=== PATIENT | female | born 1965 | race Caucasian/White ===

== ENCOUNTER 2017-05-23 18:47 | Observation (INO) | payer OTHER ==
[~2017-05-23] VITALS: Ht 160 cm; Wt 85.3 kg
[2017-05-23] MEDS ORDERED: FAMOTIDINE 20MG/102 ML D5W IV STA (19:37)
[2017-05-23] MEDS ORDERED: GI COCKTAIL PO STA (19:37)
[2017-05-23] MEDS ORDERED: SODIUM CHLORIDE 0.9% 1000ML 1,000 ML IV STA (19:37)
[2017-05-23] MEDS ORDERED: LIDOCAINE HCL 2% VISC SOLN 20 ML UDC ONE (19:49)
[2017-05-23] MEDS ORDERED: ALUMINUM/MAGNESIUM/SIMETH (MAALOX MAX) 30 ML UDC ONE (19:49)
--- NOTE | 2017-05-23 19:49 | EMERGENCY ROOM VISIT NOTE ---
History Report prepared by Lydia: Yobany Junior Under the Supervision of: Dr. Austin Ivan M.D. First contact with patient: 19:34 Chief Complaint: CARDIAC ASSESSMENT Stated Complaint: CHEST PAINS FOR 3 DAYS History of Present Illness The patient is a 52 year old female who presents to the Emergency Room with complaints of waxing and waning chest pain that started 3 days ago. She says that she initially she thought the pain was indigestion, but for the first time the pain was not resolved at all with [place]. The patient states that the pain is worsened with standing up as well as with exertion. The patient says that the pain currently is not too bad while she is laying down. She rates the pain currently as a 3 out of 10 in severity. She says that the pain has not been consistent with indigestion, as it does not change with eating. She notes that she has been nauseous the past few days but cannot vomit since her gastric bypass surgery. The patient says that she has not been eating quite as much due to the nausea, and she has been getting more cold recently, which is unusual for her. She adds that she has been having diarrhea the past couple of days. She states that she is not nauseous currently. The patient has no history of clots in her legs or lungs, and she has no history of cancer. The patient denies any fevers, cough, congestion, urinary symptoms, or leg swelling. She states that her brother had a heart attack at the age of 57. She has had no recent plane trips. She is a non-smoker. Source of History: patient Onset: 3 days ago Position: chest Symptom Intensity: currently a 3/10 Timing: waxes/wanes Modifying Factors (Worsening): exertion, other (standing up) Modifying Factors (Relieving): rest, other (laying down) Associated Symptoms: + nausea, + diarrhea, No fevers, No cough, No vomiting , No urinary symptoms Note: Associated symptoms: More cold recently. Denies congestion or leg swelling. Review of Systems See HPI for pertinent positives and negatives. A total of ten systems were reviewed and were otherwise negative. Past Medical & Surgical Medical Problems: (1) Chest pain (2) HTN (hypertension) (3) Indigestion Surgical Problems: (1) History of gastric bypass Family History Diabetes mellitus Heart disease Hypertension Kidney disease Social History Smoking Status: Never Smoker Smokeless Tobacco Use: No Alcohol Use: none Marital Status: in relationship Housing Status: lives with family Occupation Status: employed Current/Historical Medications Scheduled Amitriptyline HCl (Amitriptyline HCl), 20 MG PO HS Calcium Citrate-Vitamin D (Calcium Citrate + D3 Max 315-250 mg-Unit), 2 TABS PO BID Cyanocobalamin (Cyanocobalamin), 1,000 MCG SQ Q3MO Cyclosporine (Ophth) (Restasis), 1 DROP OP DIRECTED Fluoxetine (Prozac), 60 MG PO DAILY Lansoprazole (Prevacid), 30 MG PO DAILY Lisinopril (Zestril), 20 MG PO DAILY [place] Carbonate ([place] Carbonate), 300 MG PO BID Pediatric Multiple Vitamin W/ (Flintstones Chewable), 1 TAB PO BID Scheduled PRN Lorazepam (Ativan), 0.5 MG PO Q6H PRN for Anxiety Allergies Coded Allergies: No Known Allergies (Unverified , 05/23/17) Physical Exam Vital Signs Date Time Temp Pulse Resp B/P (MAP) Pulse Ox O2 Delivery O2 Flow Rate FiO2 05/23/17 21:22 76 21 05/23/17 21:17 77 16 05/23/17 21:12 80 21 05/23/17 21:07 84 21 05/23/17 20:57 83 18 98 05/23/17 20:52 84 21 98 05/23/17 20:47 81 24 99 05/23/17 20:32 78 17 98 05/23/17 20:31 135/70 05/23/17 20:18 Room Air 05/23/17 20:17 75 15 97 05/23/17 20:02 87 21 05/23/17 20:01 146/84 05/23/17 19:47 72 17 05/23/17 19:32 73 19 05/23/17 19:31 146/74 05/23/17 19:08 78 05/23/17 19:03 157/84 05/23/17 18:52 37.0 86 18 130/93 99 Room Air Physical Exam GENERAL: Awake, alert, well-appearing, in no distress HENT: Normocephalic, atraumatic. Oropharynx unremarkable. EYES: Normal conjunctiva. Sclera non-icteric. NECK: Supple. No nuchal rigidity. FROM. No JVD. RESPIRATORY: Clear to auscultation. CARDIAC: Regular rate, normal rhythm. Extremities warm and well perfused. Pulses equal. ABDOMEN: Soft, non-distended. Mild epigastric tenderness, no peritoneal signs. No rebound or guarding. No masses. RECTAL: Deferred. MUSCULOSKELETAL: Chest examination reveals no tenderness. The back is symmetrical on inspection without obvious abnormality. There is no CVA tenderness to palpation. No joint edema. LOWER EXTREMITIES: Calves are equal size bilaterally and non-tender. No edema. No discoloration. NEURO: Normal sensorium. No sensory or motor deficits noted. SKIN: No rash or jaundice noted. Medical Decision & Procedures ER Provider Diagnostic Interpretation: X-ray: Per my interpretation, radiologist review. CHEST ONE VIEW PORTABLE CLINICAL HISTORY: 52 years-old Female presenting with CHEST PAIN. TECHNIQUE: Portable upright AP view of the chest was obtained. COMPARISON: None. FINDINGS: Cardiomediastinal silhouette normal. Lungs and pleural spaces clear. Osseous structures normal. Upper abdomen normal. IMPRESSION: 1. No acute cardiopulmonary disease. Electronically signed by: Diego Rosales M.D. 05/23/2017 8:09 PM Dictated Date/Time: 05/23/2017 8:09 PM Laboratory Results 05/23/17 19:05 Red Blood Count 4.61, Mean Corpuscular Volume 83.7, Mean Corpuscular Hemoglobin 27.3, Mean Corpuscular Hemoglobin Concent 32.6, Mean Platelet Volume 9.4, Neutrophils (%) (Auto) 64.4, Lymphocytes (%) (Auto) 21.3, Monocytes (%) (Auto) 9.5, Eosinophils (%) (Auto) 3.9, Basophils (%) (Auto) 0.6, Neutrophils # (Auto) 4.97, Lymphocytes # (Auto) 1.64, Monocytes # (Auto) 0.73, Eosinophils # (Auto) 0.30, Basophils # (Auto) 0.05 Test 05/23/17 19:05 05/23/17 19:35 White Blood Count 7.71 K/uL (4.8-10.8) Red Blood Count 4.61 M/uL (4.2-5.4) Hemoglobin 12.6 g/dL (12.0-16.0) Hematocrit 38.6 % (37-47) Mean Corpuscular Volume 83.7 fL (80-100) Mean Corpuscular Hemoglobin 27.3 pg (25-34) Mean Corpuscular Hemoglobin Concent 32.6 g/dl (32-36) Platelet Count 456 K/uL (130-400) Mean Platelet Volume 9.4 fL (7.4-10.4) Neutrophils (%) (Auto) 64.4 % Lymphocytes (%) (Auto) 21.3 % Monocytes (%) (Auto) 9.5 % Eosinophils (%) (Auto) 3.9 % Basophils (%) (Auto) 0.6 % Neutrophils # (Auto) 4.97 K/uL (1.4-6.5) Lymphocytes # (Auto) 1.64 K/uL (1.2-3.4) Monocytes # (Auto) 0.73 K/uL (0.11-0.59) Eosinophils # (Auto) 0.30 K/uL (0-0.5) Basophils # (Auto) 0.05 K/uL (0-0.2) RDW Standard Deviation 49.2 fL (36.4-46.3) RDW Coefficient of Variation 16.0 % (11.5-14.5) Immature Granulocyte % (Auto) 0.3 % Immature Granulocyte # (Auto) 0.02 K/uL (0.00-0.02) Total Bilirubin 0.2 mg/dl (0.2-1) Direct Bilirubin < 0.1 mg/dl (0-0.2) Aspartate Amino Transf (AST/SGOT) 21 U/L (15-37) Alanine Aminotransferase (ALT/SGPT) 26 U/L (12-78) Alkaline Phosphatase 84 U/L (45-117) Total Protein 7.8 gm/dl (6.4-8.2) Albumin 3.8 gm/dl (3.4-5.0) Lipase 307 U/L (73-393) Thyroid Stimulating Hormone (TSH) 4.990 uIu/ml (0.300-4.500) Free Thyroxine 0.96 ng/dl (0.80-1.60) Bedside Troponin I < 0.030 ng/ml (0-0.045) Laboratory results reviewed by me Medications Administered Medications (Trade) Dose Ordered Sig/Jaswinder Route Start Time Stop Time Status Last Admin Dose Admin Sodium Chloride 1,000 ml @ 999 mls/hr Q1H1M STAT IV 05/23/17 19:37 05/23/17 20:37 DC 05/23/17 19:54 999 MLS/HR Famotidine (Pepcid 20mg/100 ml) 20 mg ONE STAT IV 05/23/17 19:37 05/23/17 19:44 DC 05/23/17 19:53 20 MG Al Hydrox/Mg Hydrox/Simethicone (Maalox Max Susp) 30 ml STK-MED ONCE .ROUTE 05/23/17 19:49 05/23/17 19:50 DC 05/23/17 19:54 30 ML Lidocaine HCl (Viscous Lidocaine 2% Soln) 20 ml STK-MED ONCE .ROUTE 05/23/17 19:49 05/23/17 19:50 DC 05/23/17 19:54 20 ML Aspirin (Aspirin Chew) 324 mg NOW STAT PO 05/23/17 20:57 05/23/17 20:58 DC 05/23/17 21:13 324 MG ECG Indication: chest pain Rate (beats per minute): 74 Rhythm: normal sinus, other (with sinus arrhythmia) Findings: no acute ischemic change, other (prolonged QTC at 492) Comparison ECG Date: no prior available ED Course 1935: The patient was evaluated in room A12B. A complete history and physical exam was performed. 1936: Ordered GI Cocktail 24 ml PO, Pepcid 20 mg/100 ml 20 mg IV, NSS 1000 ml @ 999 mls/hr IV. Medical Decision I reviewed the patient's past medical history, medications, and the nursing notes as described above. Differential diagnoses: ACS, pneumonia, bronchitis, gastritis, GERD, less likely obstruction, costochondritis, pericarditis. Patient is a 52-year-old woman with a past medical history of hypertension, gastric bypass, GERD since emergency Department with intermittent episodes of chest pain shortness of breath which she says occurs with exertion per history of present illness. Of note, she reports that she initially thought there were her typical GERD symptoms but not did not improve with her PPI. She reports that the symptoms have varying duration and intensity, reports nausea as well but no vomiting. Reports loose stools today but nonbloody nonblack. Denies any worsening when lying supine. On exam the patient is in no acute distress, afebrile with stable vital signs. Has mild tenderness to palpation in the epigastrium. PTT unlikely considering the patient denies any pleuritic symptoms , not tachycardic or hypoxic.. dissection unlikely with equal pulses and no report of tearing chest pain. The patient's risk factors of family history and equivocal new symptoms with exertion patient will be a heart score 4, moderate risk, assuming her troponin is negative. In this case will reassess patient and likely admit for provocative testing. Troponin negative. Chest x-ray unremarkable. Labs otherwise unremarkable. I discussed case with the medicine hospitalist who will admit the patient for further management including likely provocative testing. Medication Reconcilliation Current Medication List: was personally reviewed by me Blood Pressure Screening Patient's blood pressure: Normal blood pressure Impression Primary Impression: Chest pain Scribe Attestation The scribe's documentation has been prepared under my direction and personally reviewed by me in its entirety. I confirm that the note above accurately reflects all work, treatment, procedures, and medical decision making performed by me. Departure Information Patient Instructions [facility]
[2017-05-23] MEDS ORDERED: LORA-741 PO (19:56)
[2017-05-23] MEDS ORDERED: CALC-602 PO (19:56)
[2017-05-23] MEDS ORDERED: LISI-725 PO (19:56)
[2017-05-23] MEDS ORDERED: CYCL0.052 OP (19:56)
[2017-05-23] MEDS ORDERED: AMT10 PO (19:56)
[2017-05-23] MEDS ORDERED: FLUO20CA35 PO (19:56)
[2017-05-23] MEDS ORDERED: LANS30CA12 PO (19:56)
[2017-05-23] MEDS ORDERED: LTHSR/300 PO (19:56)
[2017-05-23] MEDS ORDERED: PEDICHW50 PO (19:56)
[2017-05-23] MEDS ORDERED: CYNI1000 SQ (19:56)
[2017-05-23 20:09] LABS: BASO % 0.6 %; BASO ABS # 0.05 K/uL (0-0.2); COMPLETE YES; EOS % 3.9 %; HEMATOCRIT 38.6 % (37-47); IG% 0.3 %; LYMPH % 21.3 %; LYMPH ABS # 1.64 K/uL (1.2-3.4); MEAN CELL VOLUME 83.7 fL (80-100); MEAN CORPUSCULAR HEMOGLOBIN 27.3 pg (25-34); MEAN CORPUSCULAR HGB CONC 32.6 g/dl (32-36); MEAN PLATELET VOLUME 9.4 fL (7.4-10.4); MONO % 9.5 %; NEUT % 64.4 %; PLATELET COUNT 456 K/uL (130-400); RED BLOOD COUNT 4.61 M/uL (4.2-5.4); WHITE BLOOD COUNT 7.71 K/uL (4.8-10.8)
--- NOTE | 2017-05-23 20:10 | DIAGNOSTIC IMAGING REPORT ---
CHEST ONE VIEW PORTABLE CLINICAL HISTORY: 52 years-old Female presenting with CHEST PAIN. TECHNIQUE: Portable upright AP view of the chest was obtained. COMPARISON: None. FINDINGS: Cardiomediastinal silhouette normal. Lungs and pleural spaces clear. Osseous structures normal. Upper abdomen normal. IMPRESSION: 1. No acute cardiopulmonary disease. Electronically signed by: Diego Rosales M.D. 05/23/2017 8:09 PM Dictated Date/Time: 05/23/2017 8:09 PM
[2017-05-23 20:17] LABS: ALT/SGPT 26 U/L (12-78); AST/SGOT 21 U/L (15-37); BLOOD UREA NITROGEN 14 mg/dl (7-18); BUN/CREATININE RATIO 13.7 (10-20); CALCIUM 9.6 mg/dl (8.5-10.1); CARBON DIOXIDE 26 mmol/L (21-32); CHLORIDE 104 mmol/L (98-107); GLUCOSE 111 mg/dl (70-99); POTASSIUM 4.3 mmol/L (3.5-5.1); SODIUM 135 mmol/L (136-145)
[2017-05-23 20:22] LABS: ALKALINE PHOSPHATASE 84 U/L (45-117)
[2017-05-23] MEDS ORDERED: ASPIRIN 81 MG CHEW PO STA (20:57)
--- NOTE | 2017-05-23 21:27 | History and Physical ---
History & Physical Date & Time of Service: May 23, 2017 at 21:26 Chief Complaint: Chest Pains For 3 Days Primary Care Physician: Elan Donnelly M.D. History of Present Illness Source: patient This is a 52 yo F with past medical hx of depression /mood disorder /HTN presented to ED with complain of substernal chest discomfort on and off for past 3 days , pt mentions of having pain below her breasts across the chest wall . worse with activity , exertion feels better with rest did not had any dizzy spell or lightheadedness, felt nauseous initially she thought her symptom was due to acid reflux , takes Lansoprazole every morning , took [place] with no improvement of symptom in the ER she was symptom free while at rest ,no complain of orthopnea, no increased lower extremity swelling pt does not have any prior hx of CAD significant family hx of premature CAD -older brother had CT at age 50 underwent CABG Mother had CT at age 79 ; at age 83 Father /sister has CHF . CAD was told has small vessel disease not amenable to intervention Past Medical/Surgical History Medical Problems: (1) HTN (hypertension) Status: Chronic (2) Indigestion Status: Chronic Surgical Problems: (1) History of gastric bypass Status: Resolved Family History Diabetes mellitus Heart disease Hypertension Kidney disease Social History Smoking Status: Never Smoker Smokeless Tobacco Use: No Marital Status: in relationship Occupational Status: employed Allergies Coded Allergies: No Known Allergies (Unverified , 05/23/17) Home Medications Scheduled Amitriptyline HCl (Amitriptyline HCl), 20 MG PO HS Calcium Citrate-Vitamin D (Calcium Citrate + D3 Max 315-250 mg-Unit), 2 TABS PO BID Cyanocobalamin (Cyanocobalamin), 1,000 MCG SQ Q3MO Cyclosporine (Ophth) (Restasis), 1 DROP OP DIRECTED Fluoxetine (Prozac), 60 MG PO DAILY Lansoprazole (Prevacid), 30 MG PO DAILY Lisinopril (Zestril), 20 MG PO DAILY [place] Carbonate ([place] Carbonate), 300 MG PO BID Pediatric Multiple Vitamin W/ (Flintstones Chewable), 1 TAB PO BID Scheduled PRN Lorazepam (Ativan), 0.5 MG PO Q6H PRN for Anxiety Review of Systems Constitutional: + chills, + weakness, + fatigue Respiratory: + dyspnea on exertion Cardiovascular: + chest pain (with exertion ) Abdomen: + nausea, + diarrhea Musculoskeletal: + problem reported (chronic back pain ) Genitourinary - Female: + urinary frequency, + urinary urgency Neurologic: + weakness, + numbness/tingling, + vertigo Psychiatric: + anxiety Endocrine: + fatigue Physical Exam Vital Signs Date Time Temp Pulse Resp B/P (MAP) Pulse Ox O2 Delivery O2 Flow Rate FiO2 05/23/17 20:47 81 24 99 05/23/17 20:32 78 17 98 05/23/17 20:31 135/70 05/23/17 20:18 Room Air 05/23/17 20:17 75 15 97 05/23/17 20:02 87 21 05/23/17 20:01 146/84 05/23/17 19:47 72 17 05/23/17 19:32 73 19 05/23/17 19:31 146/74 05/23/17 19:08 78 05/23/17 19:03 157/84 05/23/17 18:52 37.0 86 18 130/93 99 Room Air General Appearance: no apparent distress Head: normocephalic, atraumatic Eyes: normal inspection, sclerae normal Neck: supple, thyroid normal, no JVD, no carotid bruits, trachea midline Respiratory/Chest: lungs clear, normal breath sounds, no respiratory distress, + pertinent finding (tenderness on palpation at epigastric region ) Cardiovascular: regular rate, rhythm, no edema, no JVD, no murmur, normal peripheral pulses Abdomen/GI: normal bowel sounds, non tender, soft Extremities/Musculoskelatal: normal inspection, no calf tenderness, normal capillary refill, no pedal edema, normal range of motion Neurologic/Psych: no motor/sensory deficits, alert, normal mood/affect, normal reflexes Skin: normal color, warm/dry, no rash Lymphatic: no adenopathy Diagnostics Laboratory Results Results Past 24 Hours Test 05/23/17 19:05 05/23/17 19:35 05/23/17 21:20 Range/Units White Blood Count 7.71 4.8-10.8 K/uL Red Blood Count 4.61 4.2-5.4 M/uL Hemoglobin 12.6 12.0-16.0 g/dL Hematocrit 38.6 37-47 % Mean Corpuscular Volume 83.7 80-100 fL Mean Corpuscular Hemoglobin 27.3 25-34 pg Mean Corpuscular Hemoglobin Concent 32.6 32-36 g/dl Platelet Count 456 130-400 K/uL Mean Platelet Volume 9.4 7.4-10.4 fL Neutrophils (%) (Auto) 64.4 % Lymphocytes (%) (Auto) 21.3 % Monocytes (%) (Auto) 9.5 % Eosinophils (%) (Auto) 3.9 % Basophils (%) (Auto) 0.6 % Neutrophils # (Auto) 4.97 1.4-6.5 K/uL Lymphocytes # (Auto) 1.64 1.2-3.4 K/uL Monocytes # (Auto) 0.73 0.11-0.59 K/uL Eosinophils # (Auto) 0.30 0-0.5 K/uL Basophils # (Auto) 0.05 0-0.2 K/uL RDW Standard Deviation 49.2 36.4-46.3 fL RDW Coefficient of Variation 16.0 11.5-14.5 % Immature Granulocyte % (Auto) 0.3 % Immature Granulocyte # (Auto) 0.02 0.00-0.02 K/uL Sodium Level 135 136-145 mmol/L Potassium Level 4.3 3.5-5.1 mmol/L Chloride Level 104 98-107 mmol/L Carbon Dioxide Level 26 21-32 mmol/L Anion Gap 5.0 3-11 mmol/L Blood Urea Nitrogen 14 7-18 mg/dl Creatinine 1.00 0.60-1.20 mg/dl Est Creatinine Clear Calc Drug Dose 67.2 ml/min Estimated GFR () 74.5 Estimated GFR (Non- 64.3 BUN/Creatinine Ratio 13.7 10-20 Random Glucose 111 70-99 mg/dl Calcium Level 9.6 8.5-10.1 mg/dl Total Bilirubin 0.2 0.2-1 mg/dl Direct Bilirubin < 0.1 0-0.2 mg/dl Aspartate Amino Transf (AST/SGOT) 21 15-37 U/L Alanine Aminotransferase (ALT/SGPT) 26 12-78 U/L Alkaline Phosphatase 84 45-117 U/L Troponin I < 0.015 0-0.045 ng/ml Total Protein 7.8 6.4-8.2 gm/dl Albumin 3.8 3.4-5.0 gm/dl Lipase 307 73-393 U/L Bedside Troponin I < 0.030 0-0.045 ng/ml Diagnostic Radiology CHEST ONE VIEW PORTABLE CLINICAL HISTORY: 52 years-old Female presenting with CHEST PAIN. TECHNIQUE: Portable upright AP view of the chest was obtained. COMPARISON: None. FINDINGS: Cardiomediastinal silhouette normal. Lungs and pleural spaces clear. Osseous structures normal. Upper abdomen normal. IMPRESSION: 1. No acute cardiopulmonary disease. EKG Normal sinus rhythm HR @ 74 T wave inversion noted in aVL, V1-V2 prolong Qtc 492 Impression Assessment and Plan CHEST PAIN /NEED TO RULE OUT ACS : risk factor -family hx of premature CAD -brother had CT at age 57 presents with mainly GI symptom /GERD , intermittent discomfort on and off for 3 day associated with SOB EKG shows inverted T waves in Ant and septal leads aVL, V1-V2 , no ST segment abnormality initial cardiac marker negative , pt remains symptom free in ED given Family hx of CAD -cardiac ischemia needs to be evaluated will be observed in tele , serial cardiac markers ordered Q8 hrs X2 -last set to be drawn at 11: 21 Resting ECHO ordered for AM pt will be schedule for exercise stress test at 12 /noon -provided pt remains chest pain free and all cardiac markers remains negative /unremarkable NPO except for Meds for possible cardiac stress test in AM Cardiology eval will be needed is cardiac markers are positive /develops ongoing chest pain /stress test returns positive for ischemia -warranting cardiac intervention -Cardiac cath PROLONG QTc : Qtc > 490 monitor in tele , follow lytes will avoid medications can cause worsening of Qtc prolongation -Hold home medication -Amitriptyline /SSRI -Prozac/lithium avoid PRN Zofran for nausea , PRN Phenergan can be utilized repeat EKG in AM MAJOR DEPRESSIVE DISORDER ; hold TCA /SSRI due to above HTN: Will cont lisinopril HYPONATREMIA : check lithium level check TSH /Free T4 level -on lithium HX OF GERD : cont PPI DVT PROPHYLAXIS : moderate risk Sub Q heparin FULL CODE DISPOSITION : observation status in Tele expected to be discharged home when medically stable Medicine follow up with Dr Elan Martinez at [facility] Level of Care Telemetry Resuscitation Status FULL RESUSCITATION VTE Prophylaxis VTE Risk Assessment Done? Y/N: Yes Risk Level: Moderate Given or contraindicated: Unfractionated heparin SQ Additional Copies To ELAN MARTINEZ
[2017-05-23] MEDS ORDERED: MAGNESIUM HYDROXIDE SUSP 30 ML UDC PO PRN (21:30)
[2017-05-23] MEDS ORDERED: ALUMINUM/MAGNESIUM/SIMETH (MAALOX MAX) 30 ML UDC PO PRN (21:30)
[2017-05-23] MEDS ORDERED: POLYETHYLENE (MIRALAX) 17 GM PACK PO PRN (21:30)
[2017-05-23] MEDS ORDERED: NITROGLYCERIN 0.4 MG SL PER TAB CHARGE SL PRN (21:30)
[2017-05-23] MEDS ORDERED: LORAZEPAM 0.5 MG TAB PO PRN (21:45)
[2017-05-23] MEDS ORDERED: SODIUM CHLORIDE 0.9% 1000ML 1,000 ML IV SCH (22:15)
[2017-05-23 22:19] LABS: URINE APPEARANCE CLEAR (CLEAR); URINE BILIRUBIN NEG (NEG); URINE COLOR YELLOW; URINE NITRITE NEG (NEG); URINE PH 6.5 (4.5-7.5); URINE SPECIFIC GRAVITY 1.011 (1.000-1.030); UROBILINOGEN NEG (NEG); ZZUR CULT IF INDIC CLEAN CATCH NO
[2017-05-23 22:22] LABS: MANUAL MICROSCOPIC REQUIRED? NO; REVIEW REQ? NO
[2017-05-23] MEDS: RESTASIS~ORDER AWAITING ACTION SCH (22:47)
[2017-05-23 23:06] VITALS: BP 133/67; PULSE 76; TEMP 36.9; O2SAT 97; Ht 160 cm; Wt 85.3 kg
[2017-05-24] VITALS (9 sets, daily range): BP systolic 105–128; BP diastolic 63–78; PULSE 56–77; TEMP 36.3–37; O2SAT 96–98
[2017-05-24 03:48] LABS: CKMB/CK RATIO 1.4 (0-3.0)
[2017-05-24] MEDS: RESTASIS~ORDER AWAITING ACTION SCH ×3 (08:00→23:34)
[2017-05-24] MEDS: LISINOPRIL 20 MG TAB PO SCH (08:29)
[2017-05-24] MEDS: CALCIUM 600MG + VIT D 400 IU TAB PO SCH ×2 (08:30→21:07)
[2017-05-24] MEDS: PANTOprazole SOD 40 MG TAB PO SCH (08:30)
[2017-05-24] MEDS: FLINTSTONES COMPLETE CHEWABLE TAB PO SCH ×2 (08:30→21:07)
[2017-05-24] MEDS ORDERED: ASPIRIN 81 MG ECTAB PO SCH (09:00)
[2017-05-24] MEDS: ACETAMINOPHEN 325 MG TAB PO PRN ×2 (09:48→14:56)
[2017-05-24] MEDS: IV FLUIDS COMPLETED PRN ×2 (11:08→11:51)
[2017-05-24 11:44] LABS: PROTHROMBIN TIME (PATIENT) 10.5 SECONDS (9.0-12.0)
[2017-05-24 11:52] LABS: BUN/CREATININE RATIO 16.8 (10-20); CALCIUM 8.6 mg/dl (8.5-10.1); CREATININE 0.5 mg/dl (0.60-1.20); POTASSIUM 4.1 mmol/L (3.5-5.1)
[2017-05-24 11:55] LABS: CKMB/CK RATIO 0.9 (0-3.0)
[2017-05-24] MEDS ORDERED: COLCHICINE 0.6 MG TAB PO ONE (14:45)
[2017-05-24] MEDS ORDERED: IBUPROFEN 600 MG TAB PO ONE (14:45)
[2017-05-24] MEDS: HEPARIN SOD 5000 UNIT/0.5 ML CARP SQ SCH ×2 (14:57→21:10)
--- NOTE | 2017-05-24 15:01 | ECHOCARDIOGRAM REPORT ---
*NOTICE TO RECEIVING [employer] This information is strictly Confidential and protected under [place] law. [place] law prohibits you from making any further disclosure of this information unless further disclosure is expressly permitted by the written consent of the person to whom it pertains or is authorized by law. A general authorization for the release of medical or other information is not sufficient for this purpose. Hospital accepts no responsibility if the information is made available to any other person, INCLUDING THE PATIENT. Interpretation Summary * Name: JALEN ROGERS Study Date: 05/24/2017 01:36 PM * Patient Location: [facility] HR: 71 * : 1965 (M/d/yyyy) Gender: Female Height: 62 in * Age: 52 yrs Ethnicity: [place] Weight: 187 lb * Ordering Physician: Gillian Bates * Referring Physician: Self, Referred * Performed By: Angie Nina RCS * * Reason For Study: Chest pain * BSA: 1.9 m2 * The study was technically adequate. * There is no comparison study available. * -- Conclusions -- * Small circumferential pericardial effusion. * There are no echocardiographic indications of cardiac tamponade. * Left ventricular systolic function is normal. * Ejection Fraction = 55-60%. * The left ventricular wall motion is normal. * No significant valvualr pathology. Procedure Details * A complete two-dimensional transthoracic echocardiogram was performed (2D, M-mode, Doppler and color flow Doppler). Left Ventricle * The left ventricle is normal in size. * There is no thrombus. * There is normal left ventricular wall thickness. * Ejection Fraction = 55-60%. * Left ventricular systolic function is normal. * The left ventricular wall motion is normal. Right Ventricle * The right ventricle is normal size. * The right ventricular systolic function is normal as assessed by tricuspid annular plane systolic excursion (TAPSE) (normal >1.5 cm). Atria * The left atrial size is normal. * Right atrial size is normal. * There is no evidence of atrial septal defect, but resolution does not allow assessment for a patent foramen ovale. Mitral Valve * The mitral valve is normal. * There is no mitral valve stenosis. * Significant mitral regurgitation is absent. Tricuspid Valve * The tricuspid valve is normal. * There is no tricuspid stenosis. * Significant tricuspid regurgitation is absent. Aortic Valve * The aortic valve is trileaflet. * Aortic stenosis is absent. * There is no significant aortic regurgitation. Pulmonic Valve * The pulmonary valve is not well seen, but the Doppler examination is normal without significant regurgitation or stenosis. Great Vessels * The aortic root and proximal ascending aorta are normal sized. Pericardium/Pleural * Small circumferential pericardial effusion. * There are no echocardiographic indications of cardiac tamponade. Great Vessels * Normal inferior vena cava size and collapsability with sniff indicates a normal right atrial pressure of 3 mmHg Left Ventricular Diastolic Function * Pulse wave TDI of the anterior and posterior mitral annulas demonstrates normal LV relaxation MMode 2D Measurements and Calculations IVSd 0.89 cm LVIDd 4.3 cm LVIDs 2.8 cm LVPWd 0.95 cm IVS/LVPW 0.93 FS 35.9 % EDV(Teich) 84.5 ml ESV(Teich) 28.9 ml EF(Teich) 65.8 % EDV(cubed) 81.2 ml ESV(cubed) 21.4 ml EF(cubed) 73.7 % LV mass(C)d 129.1 grams LV mass(C)dI 69.5 grams/m\S\2 SV(Teich) 55.5 ml SI(Teich) 29.9 ml/m\S\2 SV(cubed) 59.8 ml SI(cubed) 32.2 ml/m\S\2 EDV(MOD-sp4) 83.2 ml ESV(MOD-sp4) 41.0 ml EF(MOD-sp4) 50.7 % EDV(MOD-sp2) 77.4 ml ESV(MOD-sp2) 36.6 ml EF(MOD-sp2) 52.7 % SV(MOD-sp4) 42.2 ml SI(MOD-sp4) 22.7 ml/m\S\2 SV(MOD-sp2) 40.8 ml SI(MOD-sp2) 22.0 ml/m\S\2 Doppler Measurements and Calculations MV E max chloe 92.3 cm/sec MV A max chloe 69.0 cm/sec MV E/A 1.3 MV dec slope 714.6 cm/sec\S\2 MV dec time 0.13 sec Ao V2 max 135.2 cm/sec Ao max PG 7.3 mmHg Ao max PG (full) 4.5 mmHg LV V1 max PG 2.8 mmHg LV V1 mean PG 1.6 mmHg LV V1 max 83.2 cm/sec LV V1 mean 61.7 cm/sec LV V1 VTI 22.6 cm TR max chloe 203.3 cm/sec
[2017-05-24 17:35] LABS: LYME DISEASE AB IGG NEG (NEG); LYME DISEASE AB IGM NEG (NEG)
[2017-05-24] MEDS: COLCHICINE 0.6 MG TAB PO SCH (21:07)
[2017-05-24] MEDS: IBUPROFEN 600 MG TAB PO SCH (21:07)
--- NOTE | 2017-05-24 23:18 | Progress Note ---
Medicine Progress Note Date & Time of Visit: May 24, 2017 at ~ 16:00 . Subjective Persistent anterior chest pain, worse with deep inspiration. No fever. No pharyngitis. No cough or shortness of breath. No nausea or vomiting. . Objective Last 8 Hrs Date Time Temp Pulse Resp B/P (MAP) Pulse Ox O2 Delivery O2 Flow Rate FiO2 05/24/17 20:00 36.8 64 16 112/63 (79) 98 Room Air 05/24/17 20:00 Room Air 05/24/17 16:00 98 Room Air 05/24/17 16:00 Room Air 05/24/17 15:37 36.6 56 16 128/78 (95) 98 05/24/17 15:26 36.7 65 16 127/76 (93) 96 Room Air Physical Exam: General- no distress Neck- no JVD Lungs- clear to auscultation Heart- RRR, II/ systolic murmur (vs rub) left sternal border Abdomen- normal bowel sounds, soft, nontender Extremities- no pretibial edema or calf tenderness Neuro- alert Laboratory Results: Last 24 Hours Test 05/24/17 03:08 05/24/17 11:12 05/24/17 14:53 05/24/17 14:56 Total Creatine Kinase 63 U/L 58 U/L Creatine Kinase MB 0.9 ng/ml 0.5 ng/ml Creatine Kinase MB Ratio 1.4 0.9 Troponin I < 0.015 ng/ml < 0.015 ng/ml Prothrombin Time 10.5 SECONDS Prothromb Time International Ratio 1.0 Sodium Level 141 mmol/L Potassium Level 4.1 mmol/L Chloride Level 108 mmol/L Carbon Dioxide Level 25 mmol/L Anion Gap 8.0 mmol/L Blood Urea Nitrogen 8 mg/dl Creatinine 0.50 mg/dl Est Creatinine Clear Calc Drug Dose 132.3 ml/min Estimated GFR () 128.1 Estimated GFR (Non- 110.5 BUN/Creatinine Ratio 16.8 Random Glucose 92 mg/dl Calcium Level 8.6 mg/dl D-Dimer 270 ug/L FEU Rheumatoid Factor < 10.0 U/mL Lyme Disease IgG Antibody NEG Lyme Disease IgM Antibody NEG C-Reactive Protein 0.39 mg/dl Other Studies: EKG performed at 0722 this morning reviewed and demonstrated normal sinus rhythm at 70/minute, biphasic T waves in lead 1, inverted T waves in aVL, minimal ST elevation leads 2, 3, aVF, V2,V3. Assessment & Plan CHEST PAIN Chest pain shows normal sinus rhythm, minimal ST elevation in multiple leads. Serial cardiac markers negative. Echocardiogram demonstrated normal left ventricular wall motion and function, small circumferential pericardial effusion. Cardiology consulted for apparent pericarditis. HYPERTENSION Continue lisinopril. VTE PROPHYLAXIS Subcutaneous heparin ordered. Will discontinue in light of pericarditis. SCDs. Ambulate. DISPOSITION Expected discharge to home. Medical follow-up with Dr. Donnelly. . Current Inpatient Medications: Current Inpatient Medications Medications (Trade) Dose Ordered Sig/Jaswinder Route Start Time Stop Time Status Last Admin Dose Admin Heparin Sodium (Porcine) (Heparin Sq 5000 Unit/0.5ml) 5,000 unit Q8 SQ 05/24/17 14:00 06/23/17 13:59 05/24/17 21:10 5,000 UNIT Acetaminophen (Tylenol Tab) 650 mg Q4H PRN PO 05/23/17 21:30 06/22/17 21:29 05/24/17 14:56 650 MG Al Hydrox/Mg Hydrox/Simethicone (Maalox Max Susp) 15 ml Q4H PRN PO 05/23/17 21:30 06/22/17 21:29 Magnesium Hydroxide (Milk Of Magnesia Susp) 30 ml Q12H PRN PO 05/23/17 21:30 06/22/17 21:29 Nitroglycerin (Nitrostat Tab) 0.4 mg UD PRN SL 05/23/17 21:30 06/22/17 21:29 Polyethylene (Miralax Powder Packet) 17 gm DAILY PRN PO 05/23/17 21:30 06/22/17 21:29 Lisinopril (Zestril Tab) 20 mg DAILY PO 05/24/17 09:00 06/23/17 08:59 05/24/17 08:29 20 MG Lorazepam (Ativan Tab) 0.5 mg Q6H PRN PO 05/23/17 21:45 06/22/17 21:44 Multivitamins (Flintstones Complete Tab) 1 tab BID PO 05/24/17 09:00 06/23/17 08:59 05/24/17 21:07 1 TAB Calcium/Vitamin D (Caltrate Plus Tab) 2 tab BID PO 05/24/17 09:00 06/23/17 08:59 05/24/17 21:07 2 TAB Miscellaneous Information (Order Awaiting Action) 1 ea QS N/A 05/24/17 00:00 06/23/17 00:00 Pantoprazole Sodium (Protonix Tab) 40 mg QAM PO 05/24/17 09:00 06/23/17 08:59 05/24/17 08:30 40 MG Miscellaneous (Iv Fluids Completed) 1 ea PRN PRN N/A 05/23/17 23:30 05/23/18 23:29 05/24/17 11:51 1 EA Ibuprofen (Motrin Tab) 600 mg TID PO 05/24/17 21:00 06/23/17 20:59 05/24/17 21:07 600 MG Colchicine (Colchicine Tab) 0.6 mg BID PO 05/24/17 21:00 06/23/17 20:59 05/24/17 21:07 0.6 MG
[2017-05-25] VITALS (8 sets, daily range): BP systolic 92–119; BP diastolic 57–75; PULSE 65–70; TEMP 36.4–36.8; O2SAT 96–100
[2017-05-25] MEDS: CALCIUM 600MG + VIT D 400 IU TAB PO SCH (07:43)
[2017-05-25] MEDS: COLCHICINE 0.6 MG TAB PO SCH (07:43)
[2017-05-25] MEDS: IBUPROFEN 600 MG TAB PO SCH ×3 (07:46→16:20)
[2017-05-25] MEDS: FLINTSTONES COMPLETE CHEWABLE TAB PO SCH (07:47)
[2017-05-25] MEDS: LISINOPRIL 20 MG TAB PO SCH (07:48)
[2017-05-25] MEDS: PANTOprazole SOD 40 MG TAB PO SCH (07:48)
[2017-05-25] MEDS: RESTASIS~ORDER AWAITING ACTION SCH ×2 (07:49→16:00)
[2017-05-25] MEDS ORDERED: FLUOXETINE HCL 20 MG CAP PO SCH (09:00)
[2017-05-25] MEDS ORDERED: LITHIUM CARBONATE 300 MG TAB PO SCH (09:00)
--- NOTE | 2017-05-25 14:28 | CARDIOLOGY PROGRESS NOTE ---
DATE: 05/25/2017 DATE: 05/25/2017 Patient seen and examined. Chart, medications, laboratory studies, telemetry reviewed. SUBJECTIVE: The patient feels improved this morning, some pleuritic and positional pain is nearly resolved. Notes some occasional indigestion complaints but no significant upsets. Notes no melena, hematochezia, dysuria or hematuria. Has been ambulatory in the room without difficulty. OBJECTIVE: VITAL SIGNS: Heart rate is 72, blood pressures 119/75 this morning. HEAD, EYES, EARS, NOSE, AND THROAT EXAMINATION: Normocephalic, atraumatic. NECK: Thick. There is no jugular venous distention. No carotid bruits. LUNGS: Clear. CARDIOVASCULAR EXAMINATION: Regular. There is no audible murmur or rub. PMI is nondisplaced. ABDOMEN: Soft, nontender. There is no palpable hepatosplenomegaly. There is no hepatojugular reflux. EXTREMITIES: Without cyanosis or clubbing. There is no peripheral edema. DATA: Laboratory studies reviewed. C-reactive protein is mildly elevated at 0.39. Lyme titers are negative. Rheumatoid factor is less than 10. IMPRESSION: A 52-year-old female presented with positional and pleuritic pain. Echocardiography demonstrating small circumferential pericardial effusion. EKG suggestive of transient pericarditis. Symptoms have improved with the use of ibuprofen and colchicine. RECOMMENDATIONS: 1. Would continue to treat presumed pericarditis with ibuprofen for approximately 1 week's time. Continue colchicine in 3-6 months unless GI intolerance develops. 2. Hypertension, on therapy. Would continue current dosings. 3. Multiple cardiac risk factors of familial history of coronary artery disease. The patient anticipates followup with primary care physician Elan Donnelly next week. Would recommend lipid panel if not recently performed, follow up stress echocardiography approximately 1 month's time. The patient understands recommendations. Noted, the patient should return should symptoms worsen or contact physician should GI intolerance to colchicine develop.
--- NOTE | 2017-05-25 16:20 | Progress Note ---
Internal Med Progress Note Date of Service: May 25, 2017. Provider Documentation: SUBJECTIVE: resting comfortably chest pain ostly improved-only has some when she takes deep breath afebrile no sob wants to go home today OBJECTIVE: Vital Signs-as noted below Exam: General-alert and oriented. Not in distress ENT-normal hearing Neck-no neck masses Lungs-cta b/l no wheezing or crackles Heart-s1 and s2 heard regular rate and rhythm, no murmurs Abdomen-soft bowel sounds present non tender no distension Extremities no edema no erythema Neuro-alert and oriented moves extremities Lab data as noted below. ASSESSMENT & PLAN: CHEST PAIN/Pericarditis Chest pain shows normal sinus rhythm, minimal ST elevation in multiple leads. Serial cardiac enzymes negative. Echocardiogram demonstrated normal left ventricular wall motion and function, small circumferential pericardial effusion. Cardiology consulted for possible t pericarditis- styarted on ibuprofen and colchicine-improving appreciate cardiology inputs possible d/c today HYPERTENSION Continue lisinopril. DVT PROPHYLAXIS scds DISPOSITION possible d/c today Vital Signs: Date Time Temp Pulse Resp B/P (MAP) Pulse Ox O2 Delivery O2 Flow Rate FiO2 05/25/17 15:12 36.7 70 18 93/58 (70) 96 Room Air 05/25/17 12:00 100 Room Air 05/25/17 11:28 36.8 68 16 92/57 (69) 96 05/25/17 08:00 100 Room Air 05/25/17 07:50 36.7 65 18 119/75 (90) 100 05/25/17 04:40 36.4 69 20 113/70 (84) 99 Room Air 05/25/17 04:13 Room Air 05/25/17 00:00 Room Air 05/24/17 23:21 37.0 67 18 109/67 (81) 97 Room Air 05/24/17 20:00 36.8 64 16 112/63 (79) 98 Room Air 05/24/17 20:00 Room Air Lab Results: Results Past 24 Hours Test 05/25/17 06:42 Range/Units Magnesium Level 2.0 1.8-2.4 mg/dl
[2017-05-25] MEDS ORDERED: MTR600 PO (17:05)
[2017-05-25] MEDS ORDERED: CLC6 PO (17:05)
--- NOTE | 2017-05-25 17:09 | Discharge Instructions ---
Discharge Instructions Date of Service May 25, 2017. Admission Reason for Admission: Chest Pain Discharge Discharge Diagnosis / Problem: chest pain/pericarditis Discharge Goals Goal(s): Decrease discomfort, Improve function Activity Recommendations Activity Limitations: resume your previous activity . Instructions / Follow-Up Instructions / Follow-Up FOLLOWUP WITH FAMILY DOCTOR Elan Mayo ON April AT 2:30PM. TO TAKE IBUPROFEN ONE WEEK AND COLCHICINE FOR 3-6 MONTHS PRESCRIBED( IF TOLERATED). IF GI SYMPTOMS DEVELOPS FROM COLCHICINE TO CONTACT FAMILY DOCTOR. IF CHEST PAIN SYMPTOMS RECUR TO CONTACT FAMILY DOCTOR OR REPORT TO ER. FOLLOW LIPID PROFILE WITH FAMILY DOCTOR. FOLLOW STRESS ECHOCARDIOGRAM( STRESS TEST) IN ONE MONTH WITH FAMILY DOCTOR REFERRAL. Current Hospital Diet Patient's current hospital diet: AHA Diet (Heart Healthy) Discharge Diet Recommended Diet: AHA Diet (Heart Healthy) Pending Studies Studies pending at discharge: no Medical Emergencies . Who to Call and When: Medical Emergencies: If at any time you feel your situation is an emergency, please call 911 immediately. . Non-Emergent Contact Non-Emergency issues call your: Primary Care Provider . . "Provider Documentation" section prepared by Darrel Tavares. . VTE Core Measure Inpt VTE Proph given/why not?: Unfractionated heparin SQ
--- NOTE | 2017-05-25 19:03 | Discharge Summary ---
Discharge Summary Date of Service May 25, 2017. Discharge Summary Admission Date: May 23, 2017 at 21:23 Discharge Date: May 25, 2017 Discharge Disposition: Home Principal Diagnosis: CHEST PAIN-PERICARDITIS Secondary Diagnoses/Problems: (1) HTN (hypertension) Status: Chronic (2) Indigestion Status: Chronic Procedures: CXR; 1. No acute cardiopulmonary disease. ECHO; Small circumferential pericardial effusion. * There are no echocardiographic indications of cardiac tamponade. * Left ventricular systolic function is normal. * Ejection Fraction = 55-60%. * The left ventricular wall motion is normal. * No significant valvualr pathology. Consultations: CARDIOLOGY Medication Reconciliation New Medications: Colchicine (Colcrys) 0.6 Mg Tab 0.6 MG PO BID for 30 Days, #60 TAB 2 Refills Ibuprofen (Ibuprofen) 600 Mg Tab 600 MG PO TID for 7 Days, #21 TAB Continued Medications: Amitriptyline HCl (Amitriptyline HCl) 10 Mg Tab 20 MG PO HS Calcium Citrate-Vitamin D (Calcium Citrate + D3 Max 315-250 mg-Unit) 1 Tab Tab 2 TABS PO BID Cyanocobalamin (Cyanocobalamin) 1,000 Mcg/Ml Inj 1000 MCG SQ Q3MO Cyclosporine (Ophth) (Restasis) 0.05 % Emu 1 DROP OP DIRECTED, BTL Fluoxetine (Prozac) 20 Mg Cap 60 MG PO DAILY, CAP Lansoprazole (Prevacid) 30 Mg Capcr 30 MG PO DAILY, CAP Lisinopril (Zestril) 20 Mg Tab 20 MG PO DAILY, TAB [place] Carbonate ([place] Carbonate) 300 Mg Cap 300 MG PO BID, CAP Lorazepam (Ativan) 0.5 Mg Tab 0.5 MG PO Q6H PRN for Anxiety, TAB Pediatric Multiple Vitamin W/ (Flintstones Chewable) 1 Chw Chw 1 TAB PO BID, TAB Admission Information HPI (per Admitting provider): This is a 52 yo F with past medical hx of depression /mood disorder /HTN presented to ED with complain of substernal chest discomfort on and off for past 3 days , pt mentions of having pain below her breasts across the chest wall . worse with activity , exertion feels better with rest did not had any dizzy spell or lightheadedness, felt nauseous initially she thought her symptom was due to acid reflux , takes Lansoprazole every morning , took Monica Salzer with no improvement of symptom in the ER she was symptom free while at rest ,no complain of orthopnea, no increased lower extremity swelling pt does not have any prior hx of CAD significant family hx of premature CAD -older brother had ID at age 50 underwent CABG Mother had ID at age 79 ; at age 83 Father /sister has CHF . CAD was told has small vessel disease not amenable to intervention Physical Exam (per Admitting): General Appearance: no apparent distress Head: normocephalic, atraumatic Eyes: normal inspection, sclerae normal Neck: supple, thyroid normal, no JVD, no carotid bruits, trachea midline Respiratory/Chest: lungs clear, normal breath sounds, no respiratory distress, + pertinent finding (tenderness on palpation at epigastric region ) Cardiovascular: regular rate, rhythm, no edema, no JVD, no murmur, normal peripheral pulses Abdomen/GI: normal bowel sounds, non tender, soft Extremities/Musculoskelatal: normal inspection, no calf tenderness, normal capillary refill, no pedal edema, normal range of motion Neurologic/Psych: no motor/sensory deficits, alert, normal mood/affect, normal reflexes Skin: normal color, warm/dry, no rash Lymphatic: no adenopathy Hospital Course CHEST PAIN/Pericarditis Chest pain shows normal sinus rhythm, minimal ST elevation in multiple leads. Serial cardiac enzymes negative. Echocardiogram demonstrated normal left ventricular wall motion and function, small circumferential pericardial effusion. Cardiology consulted for possible t pericarditis- styarted on ibuprofen and colchicine-improving appreciate cardiology inputs possible d/c today HYPERTENSION Continue lisinopril. DVT PROPHYLAXIS scds DISPOSITION possible d/c today Total time spent on discharge = 35MINUTES This includes examination of the patient, discharge planning, medication reconciliation, and communication with other providers. Discharge Instructions Discharge Instructions Date of Service May 25, 2017. Admission Reason for Admission: Chest Pain Discharge Discharge Diagnosis / Problem: chest pain/pericarditis Discharge Goals Goal(s): Decrease discomfort, Improve function Activity Recommendations Activity Limitations: resume your previous activity . Instructions / Follow-Up Instructions / Follow-Up FOLLOWUP WITH FAMILY DOCTOR Elan Mayo ON April AT 2:30PM. TO TAKE IBUPROFEN ONE WEEK AND COLCHICINE FOR 3-6 MONTHS PRESCRIBED( IF TOLERATED). IF GI SYMPTOMS DEVELOPS FROM COLCHICINE TO CONTACT FAMILY DOCTOR. IF CHEST PAIN SYMPTOMS RECUR TO CONTACT FAMILY DOCTOR OR REPORT TO ER. FOLLOW LIPID PROFILE WITH FAMILY DOCTOR. FOLLOW STRESS ECHOCARDIOGRAM( STRESS TEST) IN ONE MONTH WITH FAMILY DOCTOR REFERRAL. Current Hospital Diet Patient's current hospital diet: AHA Diet (Heart Healthy) Discharge Diet Recommended Diet: AHA Diet (Heart Healthy) Pending Studies Studies pending at discharge: no Medical Emergencies . Who to Call and When: Medical Emergencies: If at any time you feel your situation is an emergency, please call 911 immediately. . Non-Emergent Contact Non-Emergency issues call your: Primary Care Provider . . "Provider Documentation" section prepared by Darrel Tavares. . VTE Core Measure Inpt VTE Proph given/why not?: Unfractionated heparin SQ
[2017-05-25] MEDS ORDERED: AMITRIPTYLINE HCL 10 MG TAB PO SCH (21:00)
--- NOTE | 2017-05-27 07:11 | CARDIOLOGY CONSULTATION ---
DATE OF CONSULTATION: 05/24/2017 REFERRING PHYSICIAN: Dr. Wilmer Gamino. REASON FOR CONSULTATION: Chest discomfort and pericardial effusion. HISTORY OF PRESENT ILLNESS: Ms. Akers is a 52-year-old female who developed chest discomfort on Saturday. She described sharp and stabbing pain, which was quite severe at times. The pain has waxed and waned over the past 4 days. The pain typically worse with inspiration. At night, she found some relief on her left side. She came to the Emergency Department due to worsening discomfort on May 23. Her cardiac enzymes are negative x3 sets. She was scheduled for an exercise stress echo. The patient was seen and examined in the cardiopulmonary lab. Her bedside echocardiogram demonstrates a small circumferential pericardial effusion. Her chart was reviewed. D-dimer was negative; however, at the upper range of normal. Denies any recent fever, chills, or sick contacts. No flu-like illness, congestion, rhinorrhea, cough, or sputum production. Notes tick exposure within the past few weeks without associated rash, arthralgia, or fevers. Denies personal history of coronary artery disease, peripheral vascular disease, dysrhythmia, rheumatic fever as a child, or diabetes. The patient reports a family history of coronary artery disease in her brother in his mid 50s. Currently, the patient notes mild chest tightness. The pain is worse with deep inspiration. She does state that the pain is approximately 2/10. Pain has been worsened with activity. Denies orthopnea, PND, or lower extremity edema. No palpitations, lightheadedness, dizziness, syncope or near syncope. REVIEW OF SYSTEMS: Pertinent positive noted above, a comprehensive 10-system review is otherwise negative. PAST MEDICAL HISTORY: 1. Hypertension. 2. Obesity. 3. Indigestion. 4. Dyslipidemia. PAST SURGICAL HISTORY: Gastric bypass surgery. FAMILY HISTORY: Brother with coronary artery disease in his 50s. Parents with senile coronary artery disease and congestive heart failure. SOCIAL HISTORY: Lifelong nonsmoker. Denies alcohol or illicit drug use. ALLERGIES: No known drug allergies. OUTPATIENT MEDICATIONS: 1. Amitriptyline 20 mg at bedtime. 2. Calcium citrate with vitamin D 2 tabs twice daily. 3. Restasis drops as directed. 4. Prozac 60 mg daily. 5. Prevacid 30 mg daily. 6. Lisinopril 20 mg daily. 7. Excel 300 mg twice daily. 8. Pediatric multivitamin chewable daily. 9. Ativan 0.5 mg every 6 hours as needed for anxiety. Chest x-ray on admission, no acute cardiopulmonary process. LABORATORY DATA: D-dimer 500. INR 1.0. White blood cell count 7.71, hemoglobin is 12.6, and platelet count is 456. Sodium is 141, potassium 4.1, CO2 of 25, BUN is 8, and creatinine is 0.50. Cardiac enzymes are undetectable. C-reactive protein pending, lithium level 0.7. Urinalysis is within normal limits. PHYSICAL EXAMINATION: VITAL SIGNS: Temperature is 36.3 degrees Celsius, pulse 77 beats per minute and regular, respiratory rate is 14 breaths per minute, blood pressure 121/76 and SaO2 is 96% on room air. GENERAL: NAD, awake, alert and oriented x3. HEENT: Her mucous membranes are moist. No scleral icterus. Conjunctivae pink. NECK: Supple without JVD or HJR. No carotid bruit. HEART: Regular with a normal S1 and S2. There is no murmur, rub, or gallop. LUNGS: Clear without rales, rhonchi or wheeze. ABDOMEN: Soft and nontender. No rebound or guarding. Normal bowel sounds. EXTREMITIES: Warm and dry. There is no clubbing, cyanosis, or edema. NEUROLOGIC: Demonstrates no focal motor deficit. FINAL IMPRESSION: 1. A 52-year-old female admitted with pleuritic chest discomfort. Resting 2D transthoracic echo demonstrates small circumferential pericarditis with symptoms suggestive of acute pericarditis. Her ECG demonstrates no ischemic changes. Cardiac enzymes are not significantly elevated. No regional wall motion abnormalities to suggest myocarditis. 2. Hypertension -- controlled. 3. History of recent tick exposure. 4. History of obesity, status post gastric bypass surgery. PLAN AND RECOMMENDATIONS: Echocardiographic findings discussed with the patient at bedside. Recommend anti-inflammatory treatment with NSAIDs cautiously given a history of bypass surgery. We will also add colchicine twice daily. NSAIDs should be tapered quickly to avoid gastrointestinal upset or ulceration. Proton pump inhibitor should be continued as well. If the patient is intolerant to NSAIDs, could consider corticosteroid therapy; however, this increases the chance for recurrent pericarditis. Would recommend continuing colchicine for total of 4-6 weeks if tolerated. Lyme screen, LUDA, and rheumatoid factor have been ordered. The patient is also to have a PPD placed or other TB screening test if not completed recently, although this diagnosis is less likely. Further recommendations pending response to treatment and clinical course. Thank you for allowing me to take part in the care of your patient.
== END 2017-05-25 18:05 | disposition home or self-care (01) ==
LOC: C.EDB 18:50 → C.MED 21:23 → ENRESERV 21:41
PROVIDERS: ADMIT Hospitalist; ATTEND Internal Medicine
DX: I31.9 Disease of pericardium, unspecified (principal); I10 Essential (primary) hypertension; F32.9 Major depressive disorder, single episode, unspecified; E66.9 Obesity, unspecified; K30 Functional dyspepsia; E78.5 Hyperlipidemia, unspecified; Z98.84 Bariatric surgery status; Z83.3 Family history of diabetes mellitus; Z82.49 Family history of ischemic heart disease and other diseases of the circulatory system; Z84.1 Family history of disorders of kidney and ureter